=== PATIENT | female | born 1990 | race Caucasian/White ===

== ENCOUNTER → 2020-09-10 07:48 | Outpatient (CLI) | payer OTHER, SELFPAY ==
--- NOTE | 2020-09-10 | DI.ECHO.S_ITS ---
[place] [facility]---------+ [facility] +---------+ : : [address] : [address] : : : : [id number] : : : : Phone: [phone]---------+ Echocardiogram Report + + :Name: SARAH BRUNER Study Date: 09/10/2020 Height: 71 in : :[facility] ReadingLocation: Weight: 125 lb : : Gender: Female BSA: 1.7 m2 : :: 1990 Age: 30 yrs BP: 127/66 mmHg: :Reason For Study: HEART PALPITATIONS : :Ordering Physician: EMILI, : :MARILYN Performed By: Bonnie Cordero : :Referring: MARILYN MOCK : + + Interpretation Summary The left ventricle is normal in size and wall thickness. Left ventricular systolic function appears normal without focal wall motion abnormalities. The ejection fraction is estimated to be 60-65%. Diastolic parameters suggest probable normal left ventricular diastolic function and normal filling pressures. The right ventricle is normal in size and function. Pulmonary artery pressures cannot be estimated because of the lack of a measurable TR jet velocity but the IVC suggests a CVP of around 3 mmHg. Both atria are normal in size. There is no significant valvular heart disease. The aortic root is normal size. Procedure: A two-dimensional transthoracic echocardiogram with color flow and Doppler was performed. The study quality was technically adequate. There is no prior echocardiogram noted for this patient. The heart rate ranged between 75-104 bpm during the study. Left Ventricle: The left ventricle is normal in size and wall thickness. Left ventricular systolic function appears normal without focal wall motion abnormalities. The ejection fraction is estimated to be 60-65%. Diastolic parameters suggest probable normal left ventricular diastolic function and normal filling pressures. Right Ventricle: The right ventricle is normal in size and function. Atria: Both atria are normal in size. There is no Doppler evidence for an interatrial shunt. Mitral Valve: The mitral valve is normal in structure and function. There is no mitral regurgitation. Aortic Valve: The aortic valve is trileaflet. The aortic valve opens well. There is no aortic valve stenosis. No aortic regurgitation is present. Tricuspid Valve: The tricuspid valve is normal in structure and function. There is trace tricuspid regurgitation. Pulmonary artery pressures cannot be estimated because of the lack of a measurable TR jet velocity but the IVC suggests a CVP of around 3 mmHg. Pulmonic Valve: The pulmonic valve leaflets are thin and pliable; valve motion is normal. There is no pulmonic valvular regurgitation. There is no significant valvular heart disease. Great Vessels: The aortic root is normal size. The ascending aorta could not be visualized. The IVC is of normal diameter and collapses greater than 50% with a sniff. This suggests a low right atrial pressure of 3 mm Hg. Pericardium/ Pleura There is no pericardial effusion. There is no pleural effusion. MMode/2D Measurements & Calculations LVIDd: 5.2 cm LVOT diam: 2.0 cm LVIDs: 3.4 cm Ao root diam: 2.6 cm FS: 33.6 % Ao Arch Diam (Prox Trans): 2.2 cm EPSS: 0.86 cm IVSd: 0.56 cm LVPWd: 0.68 cm LV smiley. diameter/BSA (cm/m^2): 3.0 LV sys. diameter/BSA (cm/m^2): 2.0 LA A2 area: 17.0 cm2 RA long axis: 4.0 cm LA A4 area: 16.4 cm2 RA area: 9.9 cm2 LA length (vol): 4.8 cm RA vol: 21.2 ml LA vol: 49.1 ml RA : 12.3 ml/m2 LA vol index: 28.4 ml/m2 IVC diam: 1.2 cm RVD1 (basal): 3.6 cm TAPSE: 2.0 cm Doppler Measurements & Calculations Ao V2 max: 127.9 cm/sec LVOT Max Efren: 94.5 cm/sec Ao V2 mean: 88.3 cm/sec LV V1 max P.6 mmHg Ao max P.5 mmHg LV V1 VTI: 19.6 cm Ao mean P.5 mmHg ANGELIKA(I,D): 2.6 cm2 Ao V2 VTI: 24.3 cm ANGELIKA(V,D): 2.3 cm2 sev ratio: 0.81 ANGELIKA indexed to BSA (cm^2/m^2): 1.5 MV E max efren: 75.3 cm/sec PA V2 max: 122.1 cm/sec MV A max efren: 69.5 cm/sec PA V2 mean: 82.9 cm/sec MV E/A: 1.1 PA mean P.1 mmHg Med Peak E' Efren: 13.9 cm/sec PA pr(Accel): 37.9 mmHg E/E' med: 5.4 Lat Peak E' Efren: 18.4 cm/sec E/E' lat: 4.1 E/e' average: 4.8 MV dec time: 0.16 sec SV(LVOT): 62.0 ml Reading Physician:01:33 PM
== END ==
PROVIDERS: Referring Provider Orthopaedic Surgery; Visit Provider Orthopaedic Surgery
DX: R00.2 Palpitations (principal)
CPT/HCPCS: 93306